=== PATIENT | male | born 1960 | race Caucasian/White ===

== ENCOUNTER 2017-07-14 15:57 | Emergency (ER) | payer OTHER ==
[2017-07-14] MEDS: TETRACAINE 0.5% 4 ML OPH LEFT EYE (19:39)
[2017-07-14] MEDS: HYDROCODONE/APAP (10/325) TAB PO (19:42)
[2017-07-14] MEDS: KETOROLAC 30 MG INJ IM (19:42)
== END 2017-07-14 19:45 | disposition home or self-care (01) ==
LOC: FTE 15:57
DX: H57.12 Ocular pain, left eye (principal)
CPT/HCPCS: 96372; 99284-25